=== PATIENT | male | born 1985 | race African-American/Black ===

== ENCOUNTER 2017-12-25 21:09 | Emergency (ER) | payer SELFPAY ==
[2017-12-25 22:36] LABS: APPEARANCE,URINE SLIGHTLY-CLOUDY; BILIRUBIN,URINE NEGATIVE (NEGATIVE); GLUCOSE, URINE NEGATIVE (NEGATIVE); KETONES,URINE NEGATIVE (NEGATIVE); LEUKOCYTE ESTERASE,URINE NEGATIVE (NEGATIVE); NITRITE,URINE NEGATIVE (NEGATIVE); PROTEIN,URINE NEGATIVE (NEGATIVE); URINE SPECIFIC GRAVITY 1.024; UROBILINOGEN,URINE NEGATIVE mg/dL (<2.0)
[2017-12-25 22:41] LABS: COLOR,URINE YELLOW
--- NOTE | 2017-12-25 22:55 | ER Document Report ---
ED Medical Screen (RME) - General Chief Complaint: Abdominal Pain Stated Complaint: ABDOMINAL PAIN Time Seen by Provider: 12/25/17 22:50 Mode of Arrival: Ambulatory Information source: Patient Notes: 32-year-old male presents to ED for complaint of abdominal pain earlier now he is having trouble starting his urinary stream and it sanchez when he urinates. He states that the pain is actually feeling much better but he is just concerned because it is difficult to start his stream. He has already sent a urine earlier in his UA was negative. I have greeted and performed a rapid initial assessment of this patient. A comprehensive ED assessment and evaluation of the patient, analysis of test results and completion of medical decision making process will be conducted by an additional ED providers. TRAVEL OUTSIDE OF THE [place] IN LAST 30 DAYS: No - Related Data Allergies/Adverse Reactions: No Known Allergies Allergy (Verified 11/25/12 17:18) Past Medical History - Past Medical History Cardiac Medical History: Denies: Hx Heart Attack, Hx Hypertension Pulmonary Medical History: Denies: Hx Asthma, Hx Bronchitis, Hx COPD, Hx Pneumonia Musculoskeltal Medical History: Denies Hx Arthritis - Immunizations Hx Diphtheria, Pertussis, Tetanus Vaccination: Yes Physical Exam - Vital signs Vitals: Temp Pulse Resp BP Pulse Ox 98.1 F 62 16 116/85 100 12/25/17 21:48 12/25/17 21:48 12/25/17 21:48 12/25/17 21:48 12/25/17 21:48 Course - Vital Signs Vital signs: Temp Pulse Resp BP Pulse Ox 98.1 F 62 16 116/85 100 12/25/17 21:48 12/25/17 21:48 12/25/17 21:48 12/25/17 21:48 12/25/17 21:48
[2017-12-25] MEDS ORDERED: PROMETHAZINE HCL 25 MG TABLET PO ONE (23:22)
[2017-12-25] MEDS ORDERED: LIDOCAINE 1% INJ-PF (10 MG/ML) 30 ML SDV INFIL ONE (23:22)
[2017-12-25] MEDS ORDERED: AZITHROMYCIN 250 MG TABLET PO ONE (23:22)
[2017-12-25] MEDS ORDERED: CEFTRIAXONE INJ 250 MG VIAL IM ONE (23:22)
--- NOTE | 2017-12-25 23:26 | ER Document Report ---
ED General - General Chief Complaint: Abdominal Pain Stated Complaint: ABDOMINAL PAIN Time Seen by Provider: 12/25/17 22:50 Mode of Arrival: Ambulatory Notes: Patient is a 32-year-old male presents with complaint of one been tested and treated for STDs. He was recently told by sexual partner that she had trichomonas. Says he has had low blood pressure when he pees but no other symptoms. He otherwise healthy and has no other complaints at this time. He denies any medical allergies. Will discharge from his penis. No redness or swelling or lesions to the genital area. TRAVEL OUTSIDE OF THE [place] IN LAST 30 DAYS: No - Related Data Allergies/Adverse Reactions: No Known Allergies Allergy (Verified 11/25/12 17:18) Past Medical History - General Information source: Patient - Social History Smoking Status: Current Every Day Smoker Frequency of alcohol use: Heavy Drug Abuse: None Family History: Reviewed & Not Pertinent Patient has suicidal ideation: No Patient has homicidal ideation: No - Past Medical History Cardiac Medical History: Denies: Hx Heart Attack, Hx Hypertension Pulmonary Medical History: Denies: Hx Asthma, Hx Bronchitis, Hx COPD, Hx Pneumonia Renal/ Medical History: Denies: Hx Peritoneal Dialysis Musculoskeltal Medical History: Denies Hx Arthritis - Immunizations Hx Diphtheria, Pertussis, Tetanus Vaccination: Yes Review of Systems - Review of Systems Notes: My Normal Review Basic REVIEW OF SYSTEMS: CONSTITUTIONAL : Denies fever, chills, or sweats. Denies recent illness. GASTROINTESTINAL: Denies abdominal pain. Denies nausea, vomiting, or diarrhea. GENITOURINARY: Denies difficulty urinating, painful urination, burning, frequency, or blood in urine. Recent STD exposure.: MUSCULOSKELETAL: Denies neck or back pain or joint pain or swelling. SKIN: Denies rash or skin lesions. ALL OTHER SYSTEMS REVIEWED AND NEGATIVE. Physical Exam - Vital signs Vitals: Temp Pulse Resp BP Pulse Ox 98.1 F 62 16 116/85 100 12/25/17 21:48 12/25/17 21:48 12/25/17 21:48 12/25/17 21:48 12/25/17 21:48 - Notes Notes: General Appearance: Well nourished, alert, cooperative, no acute distress, no obvious discomfort. Well-appearing. Vitals: reviewed, See vital signs table. Genital: Normal external genitalia without any discharge from the penis. No external lesions seen. Neuro: speech clear, oriented x 3, normal affect, responds appropriately to questions. Course - Re-evaluation Re-evalutation: 12/26/17 06:54 Patient will be prophylactically for gonorrhea and chlamydia. He is treated for treatments as well due to his exposure. Patient return to ER immediately if he has abnormal discharge, penile swelling, any further concerns. Patient to form his sexual partners so they can be treated as well. Patient informed not to drink alcohol when taking the antibiotic. Patient agrees with plan will be discharged home. Dictation of this chart was performed using voice recognition software; therefore, there may be some unintended grammatical errors. - Vital Signs Vital signs: Temp Pulse Resp BP Pulse Ox 97.6 F 57 L 14 132/101 H 98 12/25/17 23:41 12/25/17 23:41 12/25/17 23:41 12/25/17 23:41 12/25/17 23:41 Discharge - Discharge Clinical Impression: STD exposure Condition: Good Disposition: HOME, SELF-CARE Additional Instructions: Please do not drink alcohol when on the Flagyl antibiotic. Please take the antibiotic with food. please call the culture call back number at [phone] to get the results of your Gonorrhea and Chlamydia testing. Please inform all your sexual partners to be tested and treated. Please return to the ER immediately if you develop fevers, abnormal discharge from your penis, or if you feel unwell. Prescriptions: Metronidazole [Flagyl 500 mg Tablet] 500 mg PO BID #14 tablet Forms: Return to Work
[2017-12-26 00:04] VITALS: BP 132/101
[2017-12-26 00:46] LABS: CHLAM PCR NOT DETECTED (NOT DETECT); GON PCR NOT DETECTED (NOT DETECT)
== END 2017-12-25 23:55 | disposition home or self-care (01) ==
LOC: ER 21:09
DX: Z20.2 Contact with and (suspected) exposure to infections with a predominantly sexual mode of transmission (principal); R10.9 Unspecified abdominal pain; F17.200 Nicotine dependence, unspecified, uncomplicated
CPT/HCPCS: 99284; 96372; 87086; 81001; 87491; 87591; J3490; J0696